=== PATIENT | female | born 1995 | race Caucasian/White ===

== ENCOUNTER 2023-02-15 23:54 | Emergency (ER) | payer OTHER, SELFPAY ==
--- NOTE | ~2023-02-15 | US_ITS ---
EXAMINATION: US OBSTETRICAL ULTRASOUND CLINICAL INFORMATION: with lower abdominal pressure. COMPARISON: None available. LMP: 12/11/2022. Gestational age by maternal dates is 9 weeks 4 days. Estimated date of delivery by maternal dates is 09/17/2023. TECHNIQUE: Transabdominal ultrasound performed. FINDINGS: There is a single intrauterine gestational sac with visible yolk sac, embryo/fetus, and cardiac activity. There is a 1 x 0.5 x 1.4 cm hypoechoic collection along the gestational sac. HR: 165 beats per minute. CRL (crown rump length): 2.48 cm (9 weeks 2 days +/- 4 days). MIGUEL A (estimated date of delivery): 09/19/2023 +/- 4 days. MATERNAL ADNEXA: The right maternal ovary measures 3.5 x 1.5 x 1.7 cm. The left maternal ovary measures 2.8 x 1.3 x 1.5 cm. There is no significant maternal adnexal mass. There is minimal fluid within the cul-de-sac. US/US OB <= 14 weeks fetus IMPRESSION: 1. Single intrauterine gestation with ultrasound gestational age of 9 weeks and 2 days +/- 4 days. 2. Estimated date of delivery is 09/19/2023 +/- 4 days. 3. There appears to be a small subchorionic hemorrhage.
[2023-02-15 23:57] VITALS: PULSE 105; RESP 16; TEMP 36.3; O2SAT 98; BMI 18.2
[2023-02-16 00:30] LABS: Appearance Urine Clear; Color Urine Yellow; Glucose Urine UA Negative (Negative); Leukocyte Esterase Urine Negative (Negative); Nitrite Urine Negative (Negative); PH 5.5 (5.0-9.0); Specific Gravity - Urine 1.025 (1.005-1.025); Urine Blood Negative (Negative); Urine Ketones Negative (Negative); Urine Protein Negative (Neg-Trace)
--- NOTE | 2023-02-16 00:47 | ED_ITS ---
HPI - Female Genitourinary General Chief complaint: Urogenital-Female Stated complaint: UTI Time Seen by Provider: 02/16/23 00:26 Source: patient and RN notes reviewed Mode of arrival: ambulatory Limitations: no limitations History of Present Illness HPI Narrative: This is a 27-year-old female, 9 weeks , presenting to the emergency department for evaluation of ?UTI. Patient reports that since this morning, she has had urinary urgency, frequncy and lower abdominal fullness. No dysuria. Patient reports that she has had mild intermittent nausea throughout her entire , otherwise no other complications with the thus far. Denies fevers, chills, chest pain, shortness of breath, vomiting, constipation or diarrhea. No abnormal vaginal discharge or bleeding. LMP 12/16/2022. Sees [facility] - has only had phone intake, has not had an ultrasound as of yet. No other complaints or concerns at this time. MD elicited complaint: UTI Location of symptoms: suprapubic and low back Female Urogenital Radiation: Non-Radiating Quality of pain: cramping Consistency: constant Vaginal discharge: none Vaginal bleeding: none Urinary symptoms: Urgency and Frequency Exacerbating factors: none Relieving factors: none Associated symptoms: abdominal pain Treatment prior to arrival: none Sexual activity: Yes Patient : Yes Possible : at home test positive Date of Last Menstrual Period: 12/16/22 Expected Date of Delivery: 09/22/23 Related Data : 1 Para: 0 Total number of abortions (spontaneous and elective): 0 Allergies Allergy/AdvReac Type Severity Reaction Status Date / Time amoxicillin Allergy Hives Verified 02/16/23 00:06 Sulfa (Sulfonamide Allergy Hives Verified 02/16/23 00:06 Antibiotics) Review of Systems 2 Review of Systems: Yes all other systems are reviewed and are negative Constitutional: Constitutional: Reports as per [facility] Past Medical History Attestation statement: The following information was validated with the patient. : 1 Para: 0 Total number of abortions (spontaneous and elective): 0 Date of Last Menstrual Period: 12/16/22 Social History Social History Smoked in Last 30 Days: No Use of substances other than those prescribed or required for medical reasons: No Advance Directives: No Advance Directives Information Provided: No Patient : Yes Physical Exam 2 Vital Signs: Vital Signs: Last Vital Signs Temp 97.3 F 02/15/23 23:57 Pulse 105 H 02/15/23 23:57 Resp 16 02/15/23 23:57 Pulse Ox 98 02/15/23 23:57 O2 Del Method Room Air 02/15/23 23:57 BMI result Body Mass Index 18.2 Const: General: cooperative, comfortable and no acute distress O rientation/consciousness: patient oriented x3 Limitations: no limitations HEENT: Head: Yes normal to inspection, Yes normocephalic and Yes atraumatic Ears: hearing grossly normal bilaterally General nose exam: Normal external nose present Face and sinus: Yes normal facial exam Mouth: Normal oral and palatal mucosa present, oropharynx normal and moist mucous membranes Throat: Yes posterior oropharynx normal Eyes: General: appearance normal, both eyes and all related structures E yelids: Yes eyelids normal Conjunctivae: conjunctivae normal Sclerae: s clerae normal Pupils: Equal, round and reactive pupils present EOM: EOMs intact bilaterally Neck: Neck: Yes normal visual inspection, Yes full ROM and Yes no lymphadenopathy Lymphatic: no lymphadenopathy noted Chest: Chest palpation & inspection: normal inspection of the chest Resp: Effort & Inspection: normal respiratory effort and able to speak in complete sentences Auscultation: clear to auscultation bilaterally, no crackles, no rales, no rhonchi and no wheezes Cardio: Rate: regular rate Rhythm: regular rhythm Heart sounds: S1 normal heart sound present and S2 normal heart sound present GI: Other: Abdomen is soft, with mild tenderness to palpation in the suprapubic region. No rebound or guarding. Normoactive bowel sounds present in all 4 quadrants. Inspection: Yes normal to inspection : General: Yes no CVA tenderness Back/Spine/Pelvis: Back: no CVA tenderness Skin: General skin exam: no rashes or lesions noted Trauma: no lacerations or abrasions Wounds: no wounds Neuro: General: patient oriented x3 and moves all extremities Cranial nerves: Yes Equal, round and reactive pupils present Extrem: General: Yes normal to inspection Right upper extremity: normal to inspection Left upper extremity: normal to inspection Right lower extremity: normal to inspection Left lower extremity: normal to inspection Course Reevaluation(s) Reevaluation #1: CBC within normal limits, chemistry normal. Patient's pain remains to be under control. Sign-out given to my colleague, Dr. Zavaleta, pending betaquant, Rho blood test and US. Time: 01:46 Medical Decision Making Medical Decision Making [facility] Narrative: This is a 27-year-old female, , presenting to the emergency department with complaints of suprapubic pressure, urinary frequency and urgency since this morning. Also endorsing some low back pain. Urinalysis negative for any signs of infection. Given negative UA, labs, and ultrasound was ordered. Plan: Labs, UA, ultrasound Differential Diagnosis Differential Diagnoses: The differential diagnosis associated with the presentation includes , UTI, threatened miscarriage, ectopic Lab Data [facility] Lab Attestation statement: I reviewed the patient's lab results. 02/16/23 01:04 02/16/23 01:04 Labs: Lab Results 02/16/23 02/16/23 Range/Units 00:16 01:04 WBC 7.7 (4.8-10.8) X10*3/uL RBC 4.38 (4.20-5.50) X10*6/uL Hgb 13.4 (12.0-16.0) g/dl Hct 39.9 (37.0-47.0) % MCV 91.1 (80.0-98.0) fL MCH 30.6 (27.0-33.0) pg MCHC 33.6 (31.0-35.0) g/dl RDW 13.1 (11.0-16.0) % Plt Count 247 (160-400) X10*3/uL MPV 11.2 (9.4-12.3) fL Immature Gran % (Auto) 0.4 (0.0-0.4) % Neut % (Auto) 67.8 (45-73) % Lymph % (Auto) 22.9 (20-40) % [place] % (Auto) 7.0 (2-11) % Eos % (Auto) 1.3 (0-4) % Baso % (Auto) 0.6 (0-2) % Lymph # (Auto) 1.8 (1.2-4.9) X10*3/uL [place] # (Auto) 0.5 (0.1-1.2) X10*3/uL Eos # (Auto) 0.1 (0.0-0.4) X10*3/uL Baso # (Auto) 0.1 (0.0-0.2) X10*3/uL Abs Immat Gran (auto) 0.03 (0.00-0.03) X10*3/uL Absolute Neuts (auto) 5.3 (2.0-8.3) x10*3/uL Absolute Nucleated RBC 0.000 (0.0-0.012) X10*3/uL Nucleated RBC % (auto) 0.0 (0.0-0.2) /100WBC Sodium 137 (135-145) mmol/L Potassium 4.0 (3.3-5.1) mmol/L Chloride 106 (96-108) mmol/L Carbon Dioxide 24 (22-29) mmol/L Anion Gap 11 L (12-20) BUN 12 (9-16) mg/dL Creatinine 0.65 (0.5-1.4) mg/dL Estim Creat Clear Calc 100.4 Estimated GFR > 60 Random Glucose 85 (60-115) mg/dL Calcium 9.3 (8.4-10.2) mg/dL Total Bilirubin 0.3 (0.0-1.0) mg/dL Direct Bilirubin 0.2 (0.0-0.5) mg/dL AST 16 (5-31) U/L ALT 6 (0-31) U/L Alkaline Phosphatase 43 (39-117) U/L Total Protein 6.8 (6.5-8.0) g/dL Albumin 4.3 (3.5-5.0) g/dL Beta HCG, Quant 87124 mIU/mL Urine Color Yellow Urine Appearance Clear Urine pH 5.5 (5.0-9.0) Ur Specific [place] 1.025 (1.005-1.025) Urine Protein Negative (Neg-Trace) mg/dL Urine Glucose (UA) Negative (Negative) mg/dL Urine Ketones Negative (Negative) mg/dL Urine Blood Negative (Negative) Urine Nitrite Negative (Negative) Ur Leukocyte Esterase Negative (Negative) Blood Type A Positive Independent Interpretation I performed an independent interpretation of an: Ultrasound Radiology Impression Discussion of test interpretation with radiology: I have reviewed the radiologist's reading. Radiologist Impression: [address] [address] Ultrasound Report Signed Patient: Jana Banerjee MR#: [id number] : 1995 Acct:[id number] Age/Sex: 27 / F ADM Date: 02/16/23 Loc: HO.ED Attending Dr: Ordering Physician: Kassy Wallace Date of Service: 02/16/23 Procedure(s): US OB <= 14 weeks fetus Accession Number(s): [id number] cc: Kassy Wallace; Physician,None ~ EXAMINATION: US OBSTETRICAL ULTRASOUND CLINICAL INFORMATION: with lower abdominal pressure. COMPARISON: None available. LMP: 12/11/2022. Gestational age by maternal dates is 9 weeks 4 days. Estimated date of delivery by maternal dates is 09/17/2023. TECHNIQUE: Transabdominal ultrasound performed. FINDINGS: There is a single intrauterine gestational sac with visible yolk sac, embryo/fetus, and cardiac activity. There is a 1 x 0.5 x 1.4 cm hypoechoic collection along the gestational sac. HR: 165 beats per minute. CRL (crown rump length): 2.48 cm (9 weeks 2 days +/- 4 days). MIGUEL A (estimated date of delivery): 09/19/2023 +/- 4 days. MATERNAL ADNEXA: The right maternal ovary measures 3.5 x 1.5 x 1.7 cm. The left maternal ovary measures 2.8 x 1.3 x 1.5 cm. There is no significant maternal adnexal mass. There is minimal fluid within the cul-de-sac. US/US OB <= 14 weeks fetus IMPRESSION: 1. Single intrauterine gestation with ultrasound gestational age of 9 weeks and 2 days +/- 4 days. 2. Estimated date of delivery is 09/19/2023 +/- 4 days. 3. There appears to be a small subchorionic hemorrhage. Discharge Plan Discharge Clinical Impression: First trimester Patient Disposition: Home, Self-Care Instructions: First Trimester (ED) Additional Instructions: Follow-up with your OB G Report to the ER if increased vaginal bleed/increased pain Interventions: ED Discharge Assessment Last Done: 02/16/23 03:57 Discharge Date/Time: 02/16/23 03:58
[2023-02-16 01:10] LABS: Basophils Absolute Auto 0.1 X10*3/uL (0.0-0.2); Basophils Percent Auto 0.6 % (0-2); Eosinophils Absolute Auto 0.1 X10*3/uL (0.0-0.4); Eosinophils Percent Auto 1.3 % (0-4); Hematocrit 39.9 % (37.0-47.0); Hemoglobin 13.4 g/dl (12.0-16.0); Imm Gran Abs Auto 0.03 X10*3/uL (0.00-0.03); Imm Gran Pct Auto 0.4 % (0.0-0.4); Lymphocytes Absolute Auto 1.8 X10*3/uL (1.2-4.9); Lymphocytes Percent Auto 22.9 % (20-40); MANUAL DIFF FLAG NO; Mean Corpuscular HGB Conc 33.6 g/dl (31.0-35.0); Mean Corpuscular Hemoglobin 30.6 pg (27.0-33.0); Mean Corpuscular Volume 91.1 fL (80.0-98.0); Mean Platelet Volume 11.2 fL (9.4-12.3); Monocytes Absolute Auto 0.5 X10*3/uL (0.1-1.2); Neutrophils Absolute Auto 5.3 x10*3/uL (2.0-8.3); Neutrophils Percent Auto 67.8 % (45-73); Platelet Count 247 X10*3/uL (160-400); Red Blood Count 4.38 X10*6/uL (4.20-5.50); Red Cell Distribution Width 13.1 % (11.0-16.0); White Blood Count 7.7 X10*3/uL (4.8-10.8)
[2023-02-16 01:36] LABS: Alanine Aminotransferase 6 U/L (0-31); Albumin Level 4.3 g/dL (3.5-5.0); Alkaline Phosphatase 43 U/L (39-117); Anion Gap 11 (12-20); Aspartate Amino Transferase 16 U/L (5-31); Bilirubin Direct 0.2 mg/dL (0.0-0.5); Bilirubin Total 0.3 mg/dL (0.0-1.0); Blood Urea Nitrogen 12 mg/dL (9-16); Calcium 9.3 mg/dL (8.4-10.2); Carbon Dioxide 24 mmol/L (22-29); Chloride 106 mmol/L (96-108); Creatinine Clr Calc Pharmacy 100.4; Estimated Glomerular Filt Rate > 60; Glucose Random 85 mg/dL (60-115); Sodium 137 mmol/L (135-145); Total Protein 6.8 g/dL (6.5-8.0)
--- NOTE | 2023-02-16 03:12 | PC.NURSE ---
handoff to ben santos
== END 2023-02-16 03:58 | disposition home or self-care (01) ==
PROVIDERS: Physician Assistant Medical; Emergency Provider Internal Medicine
DX: O23.41 Unspecified infection of urinary tract in pregnancy, first trimester (principal); N39.0 Urinary tract infection, site not specified; Z3A.09 9 weeks gestation of pregnancy; Z79.899 Other long term (current) drug therapy
CPT/HCPCS: 36415; 76801; 80048; 80076; 81003; 84702; 85025; 86900; 86901; 99284

== ENCOUNTER 2023-04-05 11:21 | Outpatient (REF) | payer OTHER, SELFPAY ==
[2023-04-13 19:19] LABS: CF Ethnicity NG; Cystic Fibrosis NEGATIVE (NEGATIVE)
[2023-04-17 01:44] LABS: Cytosolic 5'nuc 1A Ab IgG 5 Units; Ej Ab <11 SI (<11); HMGCR Ab IgG <2 CU (<20); Jo-1 Ab <11 SI (<11); MDA5 Ab <11 SI (<11); Mi-2 alpha Ab <11 SI (<11); Mi-2 beta Ab <11 SI (<11); NXP-2 (MJ) Ab <11 SI (<11); Oj Ab <11 SI (<11); Pl-12 Ab <11 SI (<11); Pl-7 Ab <11 SI (<11); SRP Ab <11 SI (<11); TIF1 gamma Ab <11 SI (<11)
== END 2023-04-05 11:22 | disposition home or self-care (01) ==
LOC: HO.LAB 11:21
PROVIDERS: Visit Provider Obstetrics & Gynecology
DX: Z34.90 Encounter for supervision of normal pregnancy, unspecified, unspecified trimester (principal); Z36.8A Encounter for antenatal screening for other genetic defects
CPT/HCPCS: 36415; 81220; 81255; 83516; 83520; 84182; 86235